=== PATIENT | female | born 1985 | race Two or more races ===

== ENCOUNTER 2016-04-24 14:44 | Emergency (ER) | payer BC, OTHER ==
[~2016-04-24] VITALS: Ht 160 cm; Wt 61.2 kg
[2016-04-24 15:41] LABS: Basophils # (auto) 0 uL; Basophils % (auto) 0.6 % (0.0-2.0); Eosinophils # (auto) 0.3 uL; Eosinophils % (auto) 3.4 % (0.0-7.0); Hematocrit 39.6 % (36.0-46.0); Lymphocytes # (auto) 2.4 uL; Lymphocytes % (auto) 29.4 % (10.0-50.0); Mean Corpuscular Hemoglobin 27.8 pg (28.0-32.0); Mean Corpuscular Hgb Conc. 32.9 g/dL (32.0-36.0); Mean Corpuscular Volume 84.5 fL (80.0-100.0); Mean Platelet Volume 8.9 fL (7.4-10.4); Monocytes # (auto) 0.6 uL; Monocytes % (auto) 7.9 % (0.0-12.0); Neutrophils # (auto) 4.7 uL; Neutrophils % (auto) 58.7 % (37.0-80.0); Platelet Count (auto) 360 10^3/uL (140-450); Red Cell Distribution Width 13.4 % (11.6-16.0)
[2016-04-24 15:48] LABS: BUN/Creatinine Ratio 18.8; Calcium 8.5 mg/dL (8.5-10.1); Potassium 3.6 mmol/L (3.5-5.1)
[2016-04-24 15:51] LABS: Bilirubin, Total 0.5 mg/dL (0.2-1.0); Total Protein 7.5 g/dL (6.4-8.2)
[2016-04-24 23:33] LABS: Urine Bilirubin Negative (Negative); Urine Ca Oxalate Crystal FEW (None Seen); Urine Color Yellow (Yellow); Urine Glucose Normal (Normal); Urine Ketone TRACE (Negative); Urine Mucus FEW (None Seen); Urine RBC 5 /hpf (0 - 4); Urine Squamous Epithelial Cell MOD /hpf (<5); Urine Urobilinogen Normal (Negative)
[2016-04-24 23:34] LABS: Urine Blood 2+ /uL (Negative); Urine Nitrite POSITIVE (Negative)
[2016-04-25] MEDS ORDERED: KETOROLAC TROMETH 30 MG/ML 1ML VIAL IV ONE (00:15)
[2016-04-25 02:39] VITALS: BP 127/74
== END 2016-04-25 03:45 | disposition home or self-care (01) ==
LOC: ER 14:49
DX: K80.50 Calculus of bile duct without cholangitis or cholecystitis without obstruction (principal); K80.80 Other cholelithiasis without obstruction; N39.0 Urinary tract infection, site not specified; R07.9 Chest pain, unspecified
CPT/HCPCS: 36415; 71010; 76705; 80053; 81001; 84702; 85025; 85379; 94761; 96374; 99285; J1885